=== PATIENT | female | born 1950 | race Caucasian/White ===

== ENCOUNTER → 2023-10-04 13:33 | Outpatient (REF) | payer MEDICARE, BC, SELFPAY | LOC: RCS 13:33 | PROVIDERS: ATTENDING PHYSICIAN Family Medicine | DX: Z01.818 Encounter for other preprocedural examination (principal) | CPT/HCPCS: 93005 ==

== ENCOUNTER → 2024-02-25 07:28 | Outpatient (REF) | payer MEDICARE, BC, SELFPAY | LOC: WDC 07:28 | PROVIDERS: ATTENDING PHYSICIAN Family Medicine | DX: Z12.31 Encounter for screening mammogram for malignant neoplasm of breast (principal) | CPT/HCPCS: 77063; 77067 ==

== ENCOUNTER → 2024-12-15 07:39 | Outpatient (REF) | payer MEDICARE, BC, SELFPAY | LOC: HWRAD 07:39 | PROVIDERS: ATTENDING PHYSICIAN Obstetrics & Gynecology Gynecology; FAMILY PHYSICIAN Family Medicine | DX: N83.209 Unspecified ovarian cyst, unspecified side (principal) | CPT/HCPCS: 76830; 76856 ==

== ENCOUNTER → 2024-12-22 09:55 | Outpatient (REF) | payer MEDICARE, BC, SELFPAY ==
[2024-12-22 19:26] LABS: CA 125 14.0 U/mL (0-35)
== END ==
LOC: REG 09:55
PROVIDERS: ATTENDING PHYSICIAN Obstetrics & Gynecology Gynecology; FAMILY PHYSICIAN Family Medicine
DX: Z85.43 Personal history of malignant neoplasm of ovary (principal)
CPT/HCPCS: 36415; 86304

== ENCOUNTER → 2025-02-27 19:34 | Outpatient (REF) | payer MEDICARE, BC, SELFPAY | LOC: MRI 3T 19:34 | PROVIDERS: ATTENDING PHYSICIAN Obstetrics & Gynecology Gynecology; FAMILY PHYSICIAN Family Medicine | DX: N83.201 Unspecified ovarian cyst, right side (principal); R93.89 Abnormal findings on diagnostic imaging of other specified body structures; Z92.89 Personal history of other medical treatment | CPT/HCPCS: 70030; 72197; A9575 ==

== ENCOUNTER → 2025-03-02 07:21 | Outpatient (REF) | payer MEDICARE, BC, SELFPAY | LOC: WDC 07:21 | PROVIDERS: ATTENDING PHYSICIAN Family Medicine | DX: Z12.31 Encounter for screening mammogram for malignant neoplasm of breast (principal) | CPT/HCPCS: 77063; 77067 ==